=== PATIENT | female | born 1985 | race Asian ===

== ENCOUNTER 2017-03-02 00:44 | Inpatient (IN) | payer SELFPAY ==
[~2017-03-02] VITALS: Ht 167.6 cm; Wt 59.0 kg
[2017-03-02] VITALS (15 sets, daily range): BP systolic 100–114; BP diastolic 56–76
[~2017-03-02 00:44] MED LIST: NKM
[2017-03-02 01:17] LABS: MEAN CORPUSCULAR HEMOGLOBIN 27.6 PG (27.0-31.0); MEAN CORPUSCULAR HGB CONC 32.7 G/DL (32.0-36.0); MEAN CORPUSCULAR VOLUME 84 FL (80-99); MEAN PLATELET VOLUME 9.1 FL (6.5-10.1); PLATELET COUNT 236 K/UL (150-450); RED BLOOD COUNT 4.36 M/UL (4.20-5.40); RED CELL DISTRIBUTION WIDTH 14.3 % (11.6-14.8)
[2017-03-02 01:34] LABS: ALANINE AMINOTRANSFERASE 30 U/L (3-33); ALBUMIN/GLOBULIN RATIO 1.5 (1.0-2.7); ANION GAP 13 (5-15); ASPARTATE AMINO TRANSFERASE 19 U/L (5-40); CALCIUM 9.1 mg/dL (8.6-10.2); CARBON DIOXIDE 24 mEQ/L (20-30); CHLORIDE 96 mEQ/L (98-107); CREATININE 0.7 mg/dL (0.5-0.9); GLOMERULAR FILTRATION RATE > 60 mL/min (>60); HEMOLYSIS 3; LIPASE 27 U/L (< 60); POTASSIUM 3.2 mEQ/L (3.4-4.9); SODIUM 133 mEQ/L (135-145); TOTAL PROTEIN 6.7 g/dL (6.6-8.7)
--- NOTE | 2017-03-02 02:08 | Emergency Room Report ---
History of Present Illness General Chief Complaint: Syncope Source: Patient (Carlos A Davis M.D.) Present Illness HPI Patient presents after syncopal episode. She's allegedly 6 weeks . She 's complaining about right lower quadrant pain. She was seen 2 days ago at [place]. They didn't want an ultrasound and stated he couldn't be certain what was going on. They told her blood type was O+. She was seen at a private clinic and had an untrasound with IUP. The patient denies any nausea, vomiting, chest pain, shortness of breath dysuria. The patient is fairly severe in the right lower quadrant. It's constant. Addition to that she's also had generalized abdominal pain it causes her to have shortness of breath. It's also her right upper quadrant. The patient's been bleeding for 3 days. It started off as spotting. Yesterday she passed clots. She states she used 3 pads. She states that the Quant at [place] was 4000. She is status post ectopic on the left-hand side. Tube still present but is not certain that it would be functional. (Carlos A Davis M.D.) Allergies: Coded Allergies: No Known Allergies (Unverified , 03/02/17) Patient History Past Medical History: see triage record Past Surgical History: other - ectopic L Social History Narrative From [facility] - [facility] - Now: Yes : 2 Para: 0 Reviewed Nursing Documentation: PMH: Agreed, PSxH: Agreed (Carlos A Davis M.D.) Nursing Documentation-PM Past Medical History: No Stated History (Carlos A Davis M.D.) Review of Systems All Other Systems: negative except mentioned in HPI (Carlos A Davis M.D.) Physical Exam Vital Signs Date Time Temp Pulse Resp B/P Pulse Ox O2 Delivery O2 Flow Rate FiO2 03/02/17 00:33 73 17 107/75 100 Room Air 03/02/17 00:44 98.2 Sp02 EP Interpretation: reviewed, normal General Appearance: well appearing, no apparent distress, GCS 15 Head: normocephalic Eyes: bilateral eye normal inspection ENT: moist mucus membranes Neck: supple Respiratory: lungs clear, normal breath sounds Cardiovascular #1: regular rate, rhythm Cardiovascular #2: 2+ radial (R) Gastrointestinal: normal inspection, normal bowel sounds, no mass, non- distended, no rebound, tenderness - RLQ Musculoskeletal: back normal, gait/station normal, normal range of motion Neurologic: alert, oriented x3, grossly normal Psychiatric: mood/affect normal Skin: normal inspection, warm/dry (Carlos A Davis M.D.) Procedures Critical Care Time Critical Care Time Total Critical Care Time: 45 min bedside evaluation and treatment excludes procedures. Reason for critical care: evaluation of intraperitoneal hemorrhage and arranging emergent surgery with repeated evaluations Possible complications: hypotension, hypertension, PA, shock, arrhythmias, metabolic acidosis, end organ damage, respiratory failure. Interventions: Fluid resuscitation, emergent Cable Television Technician consultations, repeated evaluations, review of outside records, preparation for surgery and discussion for availability for blood transfusions Course: Patient post syncope with RLQ pain. . Emergent evaluation for ectopic. Discussion with OB and consideration for methotrexate. Further history and repeated exam. Repeat discussion with Ob. CT abdomen ordered. Blood in abdomen. Arrange for emergent surgery. Though acute blood loss, not hemorrhagic shock. Holding off on blood (though discussed with patient). Consultations: nursing staff, EMS, family, blood bank, Ob Performed by: Dr. Davis Tolerated well condition = critical (Carlos A Davis M.D.) Medical Decision Making Diagnostic Impression: Primary Impression: Syncope Qualified Codes: R55 - Syncope and collapse Additional Impressions: Rule out ectopic Right lower quadrant pain Leukocytosis Qualified Codes: D72.829 - Elevated white blood cell count, unspecified ER Course Patient is 6 weeks presents with syncope and right lower quadrant pain. Differential includes ectopic, ovarian torsion, appendicitis, vasovagal, threatened miscarriage amongst others. Emergent evaluation is undertaken with labs, EKG, ultrasound. She refused IV hydration and Tylenol. White count is elevated at 18,000. Her quant HCG 2000. Patient with R mass on ultrasound. Now with some diffuse tenderness. Will treat with analgesia. Needs observation and Ob consultation. Dr. Bryson wants us to give methotrexate. When talking to patient about this, she states that on 02/25 had ultrasound with IUP. [facility] thought she had miscarriage. She has a picture of IUP. Based on this, I cancelled methotrexate and have ordered CT of abdomen and pelvis. Call from radiologist @ 6:45 - complex mass R adnexa with "a lot" of blood in abdomen. Suggests actively bleeding ectopic. Calling Dr. Bryson. Repeating H/H. H/H dropped [address] Bryson and setting up to crossmatch blood. Arranging for emergent surgery. VS stable. Laboratory Tests Test 03/02/17 00:59 White Blood Count 18.0 K/UL (4.8-10.8) H Red Blood Count 4.36 M/UL (4.20-5.40) Hemoglobin 12.1 G/DL (12.0-16.0) Hematocrit 36.9 % (37.0-47.0) L Mean Corpuscular Volume 84 FL (80-99) Mean Corpuscular Hemoglobin 27.6 PG (27.0-31.0) Mean Corpuscular Hemoglobin Concent 32.7 G/DL (32.0-36.0) Red Cell Distribution Width 14.3 % (11.6-14.8) Platelet Count 236 K/UL (150-450) Mean Platelet Volume 9.1 FL (6.5-10.1) Neutrophils (%) (Auto) % (45.0-75.0) Lymphocytes (%) (Auto) % (20.0-45.0) Monocytes (%) (Auto) % (1.0-10.0) Eosinophils (%) (Auto) % (0.0-3.0) Basophils (%) (Auto) % (0.0-2.0) Prothrombin Time 10.0 SEC (9.30-11.50) Prothrombin Time INR 1.0 (0.9-1.1) PTT 21 SEC (23-33) L Sodium Level 133 mEQ/L (135-145) L Potassium Level 3.2 mEQ/L (3.4-4.9) L Chloride Level 96 mEQ/L (98-107) L Carbon Dioxide Level 24 mEQ/L (20-30) Anion Gap 13 (5-15) Blood Urea Nitrogen 7 mg/dL (7-23) Creatinine 0.7 mg/dL (0.5-0.9) Estimate Glomerular Filtration Rate > 60 mL/min (>60) Glucose Level 112 mg/dL (74-106) H Calcium Level 9.1 mg/dL (8.6-10.2) Total Bilirubin 0.7 mg/dL (0.0-1.2) Aspartate Amino Transferase (AST) 19 U/L (5-40) Alanine Aminotransferase (ALT) 30 U/L (3-33) Alkaline Phosphatase 31 U/L (35-104) L Total Protein 6.7 g/dL (6.6-8.7) Albumin 4.1 g/dL (3.5-5.2) Globulin 2.6 g/dL Albumin/Globulin Ratio 1.5 (1.0-2.7) Lipase 27 U/L (< 60) Human Chorionic Gonadotropin, Quant 2015 mIU/mL (Carlos A Davis M.D.) ER Course The patient was discussed with Dr. Bryson. Patient said the lower H&H was noted. The patient was crossmatched for 2 units of blood. After discussion Dr. Bryson , nursing correctional food service supervisor was contacted for OR team for exploratory surgery. I EKG interpreted by me showed a normal sinus rhythm rate of 75 with an incomplete right bundle branch block the qt was normal (Ace Biggs) EKG Diagnostic Results Rate: normal Rhythm: NSR ST Segments: no acute changes (Carlos A Davis M.D.) Rate: normal - 75 Rhythm: NSR ST Segments: no acute changes (Ace Biggs) Rhythm Strip Diag. Results EP Interpretation: yes Rhythm: NSR, no PVC's, no ectopy (Carlos A Davis M.D.) EP Interpretation: yes Rhythm: NSR, no PVC's, no ectopy (Ace Biggs) CT/MRI/US Diagnostic Results CT/MRI/US Diagnostic Results #1: Imaging Test Ordered: pelvic u/s and abd u/s Impression R complex mass, uterus empty CT/MRI/US Diagnostic Results #2: Imaging Test Ordered: ct abd pelvis Impression complex mass R adnexa with intraperitoneal blood (Carlos A Davis M.D.) Status: improved (Carlos A Davis M.D.) Status: improved (Ace Biggs) Disposition: ADMITTED INPATIENT Condition: Critical Referrals: NOT CHOSEN IPA/,REFERRING (PCP) Carlos A Davis M.D. Mar 02, 2017 02:08 Ace Biggs Mar 02, 2017 07:48
[2017-03-02] MEDS ORDERED: Metoclopramide 10mg/2ml Inj IVP ONE (03:15)
[2017-03-02] MEDS ORDERED: fentaNYL 100 mcg/2 mL IV ONE (03:15)
[2017-03-02] MEDS ORDERED: DiphenhydrAMINE 50mg/ml Inj IVP ONE (03:15)
[2017-03-02] MEDS ORDERED: Methotrexate Sodium 50mg/2ml vial IM ONE (03:45)
[2017-03-02 07:16] LABS: BASOPHILS % (AUTO) 0.7 % (0.0-2.0); EOSINOPHILS % (AUTO) 0.1 % (0.0-3.0); MEAN CORPUSCULAR HEMOGLOBIN 27.8 PG (27.0-31.0); MEAN CORPUSCULAR HGB CONC 32.7 G/DL (32.0-36.0); MEAN CORPUSCULAR VOLUME 85 FL (80-99); MEAN PLATELET VOLUME 8.2 FL (6.5-10.1); NEUTROPHILS % (AUTO) 74.3 % (45.0-75.0); PLATELET COUNT 160 K/UL (150-450); RED BLOOD COUNT 3.29 M/UL (4.20-5.40); RED CELL DISTRIBUTION WIDTH 14.1 % (11.6-14.8); WHITE BLOOD COUNT 10.9 K/UL (4.8-10.8)
[2017-03-02] MEDS ORDERED: ceFAZolin sod 1 GM in NS 55 ML IVPB ONE (08:15)
[2017-03-02] MEDS ORDERED: Bupivacaine w/Epi 0.5% 30ml Vial INJ ONE (08:41)
[2017-03-02] MEDS ORDERED: Dexamethasone 4mg/ml vial ONE (08:47)
[2017-03-02] MEDS ORDERED: Sterile Water Irrig 1000ml IRRIG ONE (08:47)
[2017-03-02] MEDS ORDERED: Succinylcholine 20mg/ml 10ml vial ONE (08:47)
[2017-03-02] MEDS ORDERED: NS 275ml ONE (08:47)
[2017-03-02] MEDS ORDERED: Ketorolac 30mg Inj ONE (08:47)
[2017-03-02] MEDS ORDERED: Midazolam 2mg/2ml Inj ONE (08:47)
[2017-03-02] MEDS ORDERED: LR 1000ml ONE (08:47)
[2017-03-02] MEDS ORDERED: NS Irrig 1000ml ONE (08:47)
[2017-03-02] MEDS ORDERED: Propofol 10mg/ml 20ml IV ONE (08:47)
[2017-03-02] MEDS ORDERED: fentaNYL 250mcg/5ml ONE (08:47)
[2017-03-02] MEDS ORDERED: Metoclopramide 10mg/2ml Inj ONE (08:47)
[2017-03-02] MEDS ORDERED: Lidocaine 1% MPF 10mg/ml 5ml ONE (08:47)
[2017-03-02] MEDS ORDERED: Zemuron 50mg/5ml Inj IV ONE (08:47)
--- NOTE | 2017-03-02 08:49 | Anethesia Preoperative Eval ---
Anesthesia Pre-op PMH/ROS General Date of Evaluation: Mar 02, 2017 Anesthesiologist: Eloy ASA Score: ASA 1 - E Mallampati Score Class I : Soft palate, uvula, fauces, pillars visible Class II: Soft palate, uvula, fauces visible Class III: Soft palate, base of uvula visible Class IV: Only hard plate visible Mallampati Classification: Class II Surgeon: Adelaide Diagnosis: Ruptured ectopic Surgical Procedure: Laparoscopic excision ectopic Anesthesia History: none Family History: no anesthesia problems Allergies: Coded Allergies: No Known Allergies (Unverified , 03/02/17) Medications: see eMAR Past Medical History Cardiovascular: Denies: CAD, HTN, MD, arrhythmia, other, valve dz Pulmonary: Denies: COPD, DOUGLAS, asthma, other Gastrointestinal/Genitourinary: Denies: CRI, ESRD, GERD, other Neurologic/Psychiatric: Denies: CVA, TIA, dementia, depression/anxiety, other Endocrine: Denies: DM, hypothyroidism, other, steroids HEENT: Denies: [place] (L), [place] (R), cataract (L), cataract (R), glaucoma, other Hematology/Immune: Denies: DVT, anemia, bleeding disorder, other Musculoskeletal/Integumentary: Denies: DDD, DJD, OA, RA, edema, other PSxH Narrative: Denies Anesthesia Pre-op Phys. Exam Physician Exam Last Vital Signs Date Time Temp Pulse Resp B/P Pulse Ox O2 Delivery O2 Flow Rate FiO2 03/02/17 06:15 98.0 67 18 100/62 100 Room Air Constitutional: NAD Cardiovascular: RRR Respiratory: CTA Airway Exam Mallampati Score: Class II MO: limited ROM: limited Teeth: intact Anesthesia Pre-op A/P Labs Hematology Test 03/02/17 00:59 03/02/17 07:00 White Blood Count 18.0 K/UL (4.8-10.8) H 10.9 K/UL (4.8-10.8) H Red Blood Count 4.36 M/UL (4.20-5.40) 3.29 M/UL (4.20-5.40) L Hemoglobin 12.1 G/DL (12.0-16.0) 9.2 G/DL (12.0-16.0) L Hematocrit 36.9 % (37.0-47.0) L 28.1 % (37.0-47.0) L Mean Corpuscular Volume 84 FL (80-99) 85 FL (80-99) Mean Corpuscular Hemoglobin 27.6 PG (27.0-31.0) 27.8 PG (27.0-31.0) Mean Corpuscular Hemoglobin Concent 32.7 G/DL (32.0-36.0) 32.7 G/DL (32.0-36.0) Red Cell Distribution Width 14.3 % (11.6-14.8) 14.1 % (11.6-14.8) Platelet Count 236 K/UL (150-450) 160 K/UL (150-450) Mean Platelet Volume 9.1 FL (6.5-10.1) 8.2 FL (6.5-10.1) Neutrophils (%) (Auto) % (45.0-75.0) 74.3 % (45.0-75.0) Lymphocytes (%) (Auto) % (20.0-45.0) 19.0 % (20.0-45.0) L Monocytes (%) (Auto) % (1.0-10.0) 6.0 % (1.0-10.0) Eosinophils (%) (Auto) % (0.0-3.0) 0.1 % (0.0-3.0) Basophils (%) (Auto) % (0.0-2.0) 0.7 % (0.0-2.0) Coagulation Test 03/02/17 00:59 Prothrombin Time 10.0 SEC (9.30-11.50) Prothromb Time International Ratio 1.0 (0.9-1.1) Activated Partial Thromboplast Time 21 SEC (23-33) L Chemistry Test 03/02/17 00:59 Sodium Level 133 mEQ/L (135-145) L Potassium Level 3.2 mEQ/L (3.4-4.9) L Chloride Level 96 mEQ/L (98-107) L Carbon Dioxide Level 24 mEQ/L (20-30) Anion Gap 13 (5-15) Blood Urea Nitrogen 7 mg/dL (7-23) Creatinine 0.7 mg/dL (0.5-0.9) Estimat Glomerular Filtration Rate > 60 mL/min (>60) Glucose Level 112 mg/dL (74-106) H Calcium Level 9.1 mg/dL (8.6-10.2) Total Bilirubin 0.7 mg/dL (0.0-1.2) Aspartate Amino Transf (AST/SGOT) 19 U/L (5-40) Alanine Aminotransferase (ALT/SGPT) 30 U/L (3-33) Alkaline Phosphatase 31 U/L (35-104) L Total Protein 6.7 g/dL (6.6-8.7) Albumin 4.1 g/dL (3.5-5.2) Globulin 2.6 g/dL Albumin/Globulin Ratio 1.5 (1.0-2.7) Lipase 27 U/L (< 60) Human Chorionic Gonadotropin, Quant 2015 mIU/mL Risk Assessment & Plan Assessment: ASA IE Plan: GA Status Change Before Surgery: No Pre-Antibiotics Drug: Ancef 1g Given Within 1 Hr of Incision: Yes - 08 Time Given: 08:30 ABILIO MATTHEWS M.D. Mar 02, 2017 08:49
[2017-03-02 08:59] LABS: APPEARANCE,URINE CLEAR; KETONES,URINE 1+ (NEGATIVE); LEUKOCYTE ESTERASE ,URINE NEGATIVE (NEGATIVE); NITRITE,URINE NEGATIVE (NEGATIVE); PH,URINE 6.5 (4.5-8.0); PROTEIN,URINE NEGATIVE (NEGATIVE); UROBILINOGEN,URINE NORMAL MG/DL (0.0-1.0)
[2017-03-02] MEDS ORDERED: LR 1000ml 1,000 ML IVLG SCH (09:03)
--- NOTE | 2017-03-02 09:05 | 48 Hour Post Anesthesia Eval ---
Post Anesthesia Evaluation Procedure: Laparoscopic excision ectopic Date of Evaluation: Mar 02, 2017 Time of Evaluation: 13:30 Blood Pressure Systolic: 108 0: 64 Pulse Rate: 78 Respiratory Rate: 20 Temperature (Fahrenheit): 97 O2 Sat by Pulse Oximetry: 100 Airway: patent Nausea: No Vomiting: No Pain Intensity: 0 Hydration Status: adequate Cardiopulmonary Status: at [place] Mental Status/LOC: patient returned to baseline Post-Anesthesia Complications: 0 Follow-up care needed: N/A - further care as per primary team ABILIO MATTHEWS M.D. Mar 02, 2017 09:05
--- NOTE | 2017-03-02 09:05 | Immediate Post-Op Evaluation ---
Immediate Post-Op Evalulation Immediate Post-Op Evalulation Procedure: Laparoscopic excision ectopic Date of Evaluation: Mar 02, 2017 Time of Evaluation: 11:22 IV Fluids: 1.6L Blood Products: 0 Estimated Blood Loss: 750 Urinary Output: 200 Blood Pressure Systolic: 108 Blood Pressure Diastolic: 63 Pulse Rate: 94 Respiratory Rate: 16 O2 Sat by Pulse Oximetry: 100 Temperature (Fahrenheit): 98.4 Pain Score (1-10): 0 Nausea: No Vomiting: No Complications 0 Patient Status: awake, reacts, patent, none Hydration Status: adequate Drug: Ancef 1g Given Within 1 Hr of Incision: Yes Time Given: 08:30 ABILIO MATTHEWS M.D. Mar 02, 2017 09:05
[2017-03-02 09:14] LABS: RBC,URINE 0-2 /HPF (0 - 2); SQUAMOUS EPITHELIAL CELL,UR OCCASIONAL /LPF (NONE/OCC); WBC,URINE 0-2 /HPF (0 - 2)
[2017-03-02] MEDS ORDERED: fentaNYL 100 mcg/2 mL IV PRN (09:15)
[2017-03-02] MEDS ORDERED: Midazolam 2mg/2ml Inj IVP PRN (09:15)
[2017-03-02] MEDS ORDERED: DiphenhydrAMINE 50mg/ml Inj IVP PRN (09:15)
[2017-03-02] MEDS ORDERED: Metoclopramide 10mg/2ml Inj IVP PRN (09:15)
[2017-03-02] MEDS ORDERED: LORazepam Inj 2mg/ml 1ml IV PRN (09:15)
[2017-03-02] MEDS ORDERED: Hydromorphone 0.5mg/0.5ml inj IVP PRN (09:15)
[2017-03-02] MEDS ORDERED: Ketorolac 30mg Inj IV PRN (09:15)
--- NOTE | 2017-03-02 10:13 | Diagnostic Imaging Report ---
Indication: Abdominal pain Technique: CT of the abdomen and pelvis utilizing automated exposure control with intravenous contrast. Venous scanning performed. CT dose: Total DLP 729 mGycm; CTDI vol 14.1 mGy Comparison: Pelvic ultrasound from earlier the same day Findings: There is mild atelectasis in the lung bases. There is mild free fluid in the upper abdomen and the pelvis. There is a 5.6 x 6.1 cm heterogeneous hyperdense right anterior adnexal mass. There is thickening and heterogeneous endometrial fluid. The bladder is grossly unremarkable. The liver, adrenal glands, kidneys, spleen, pancreas and gallbladder are unremarkable. The small bowel loops are normal in caliber. The appendix is normal. There is no free intraperitoneal air. Impression: Reportedly female with right adnexal 6.1 x 5.6 cm hyperdense mass with mild fluid in the pelvis and upper abdomen adjacent to the liver and spleen. Possibility of a ruptured ectopic should be considered as an intrauterine was not identified on the pelvic ultrasound. Hyperdense mass in the right lower quadrant suggestive of hematoma and hemoperitoneum. Gynecologic evaluation recommended. The above report is essentially concordant with preliminary reading by [facility]. Findings also discussed with Dr. Biggs at [address] The CT scanner at [facility] is accredited by the [employer] and the scans are performed using protocols designed to limit radiation exposure to as low as reasonably achievable to attain images of sufficient resolution adequate for diagnostic evaluation.
--- NOTE | 2017-03-02 10:14 | Diagnostic Imaging Report ---
Indication: Chest pain Technique: XRAY CHEST 1 V Comparison: None Findings: The cardiomediastinal silhouette is within normal limits. There is no focal consolidation, pneumothorax or pleural effusion. Osseous structures demonstrate no acute abnormality. Impression: No acute cardiopulmonary disease.
[2017-03-02] MEDS ORDERED: Silver Nitrate Stick TOPIC ONE (11:05)
--- NOTE | 2017-03-02 11:19 | Pre-Procedure Note/Attestation ---
Pre-Procedure Note/Attestation Complete Prior to Procedure Planned Procedure: right Procedure Narrative: Video pelviscopy, evacuation of hemoperitoneum, extraction of tubal contents, D& C Indications for Procedure Pre-Operative Diagnosis: Possible ectopic , possible missed Attestation I attest that I discussed the nature of the procedure; its benefits; risks and complications; and alternatives (and the risks and benefits of such alternatives ), prior to the procedure, with the patient (or the patient's legal territory account representative). I attest that, if there was a reasonable possibility of needing a blood transfusion, the patient (or the patient's legal territory account representative) was given the [place] [employer] [facility] standardized written summary, pursuant to the Socrates Terri Blood Safety Act ([place] Health and Safety Code # 1645, as amended). I attest that I re-evaluated the patient just prior to the surgery and that there has been no change in the patient's H&P, except as documented below:NONE HAROON MORRISON Mar 02, 2017 11:19
--- NOTE | 2017-03-02 11:23 | Brief Operative Note ---
Immediate Post Operative Note Operative Note Pre-op Diagnosis: Possible ectopic , possible missed Procedure: D&C, Pelviscopy, Removal Right tubal contents, evacuation of hemoperitoneum Post-op Diagnosis: same as pre-op Surgeon: Haroon Morrison MD Anesthesiologist: Meka Morrell MD Anesthesia: general Specimen: yes - Uterine contents, Right tubal contents Complications: none Condition: stable Estimated Blood Loss: volume - 1000 Drains: none Implant(s) used?: No HAROON MORRISON Mar 02, 2017 11:23
[2017-03-02] MEDS ORDERED: Norco 5mg/325mg tab ORAL PRN (11:30)
[2017-03-02] MEDS ORDERED: Tylenol #3 tab (300mg/30mg) ORAL PRN (11:30)
[2017-03-02] MEDS ORDERED: HYDROmorphone 1mg/ml Carpuject SUBQ PRN (11:30)
[2017-03-02] MEDS ORDERED: Meperidine 25mg/0.5ml Inj (FOR RIGORS ONLY) IV PRN (11:45)
[2017-03-02] MEDS ORDERED: D5 1/2NS 1,000 ML IV SCH (14:00)
--- NOTE | 2017-03-02 18:00 | Operative Note - Dictated ---
DATE OF OPERATION: 03/02/2017 PROCEDURES PERFORMED: 1. Video pelviscopy with evacuation of hemoperitoneum. 2. Video pelviscopy with removal of right tubal contents. 3. Dilatation and curettage. SURGEON: Alex Bryson M.D. ANESTHESIOLOGIST: Dr. Meka Morrell. ANESTHESIA TYPE: General endotracheal. PREOPERATIVE DIAGNOSIS: Possible intrauterine . PROCEDURE IN DETAIL: After all the appropriate consents were signed, the patient was brought to the operating room and placed on table in supine position. General endotracheal anesthesia was induced without complication. The patient was then placed in the dorsal lithotomy position. Perineum, vagina, and abdomen were prepped in usual fashion for the procedure. Due to the previous possible ultrasound, which showed intrauterine , but no currently intrauterine visualized, it was still decided to proceed with uterine curettage and vacuum evacuation. This procedure was performed and significant amount of contents were visualized during both the sharp and vacuum suction. Once this was completed, an uterine manipulator was placed and the procedure continued at its abdominal portion. An umbilical incision was made, Veress needle was advanced, and the abdomen was insufflated with 15 mmHg. The pelvis was now entered with a 10 mm trocar in the umbilicus and two additional trocars in the midline and lower left areas. The procedure then continued with visualization of the pelvis. There was a significant amount of blood in the pelvis, which was evacuated and the tube was found in the right anterior cul-de-sac near the bladder. The tube contained significant amount of clots around it with portion of the clots coming from inside of the dilated fimbrial portion. At this time, evacuation was undertaken and all of the clots and blood were suctioned after thorough irrigation and suction. The fimbrial end was now visualized and was slightly bleeding. A gentle cauterization was applied to the uterine fimbria on the right. At this time, the rest of the pelvis was visualized. The uterus was elevated, however the uterus was difficult to elevate due to the posterior uterine adhesions to the posterior vagina and the cone. The left side was also covered with a loop of colon, which was suspended from the left pelvic sidewall with adhesions. The tube on the left was completely matted with adhesions and slightly dilated throughout the length of the tube. The photographs were taken at this time and the upper abdomen was also evaluated. There was a significant amount of blood. There were adhesions from the cecum to the right pelvic sidewall. The appendix was visualized and was found to be within normal limits. At this time, the procedure continued with grasping of the right tubal fimbria and completely evaluating the fimbria for any bleeding. Some additional hemostasis was required using coagulation. At this time, the abdomen was thoroughly irrigated and debris and blood were suctioned. Over 3 liters of irrigant was used. The procedure then continued with once again evaluating the pelvis. All the operative sites were fully hemostatic and the trocars were removed one after another with direct visualization of the laparoscope. The laparoscope was removed last. All the operative sites were fully hemostatic. The punctures were closed using #0 Vicryl suture at the fascia layer and Monocryl suture at the skin layer. The patient incisions were covered with Steri-Strips and benzoin. The patient was now placed in the supine position, uterine manipulator was removed, and the patient was awakened from general anesthesia. She was transferred to the recovery room in excellent condition. Alex Bryson M.D. DR: ROSALINDA JOB#: [id number] CC: ETHAN
[2017-03-04 06:54] VITALS: BP 108/64
--- NOTE | 2017-03-05 08:48 | Discharge Summary ---
Discharge Summary Hospital Course Date of Admission Mar 02, 2017 at 12:55 Date of Discharge Mar 02, 2017 at 16:33 Admitting Diagnosis ECTOPIC Reason for Hospitalization: ectopic RADHA Aguilar is a 31 year old female who was presented after syncopal episode. She's allegedly 6 weeks . She was complaining about right lower quadrant pain. She was seen 2 days ago at [facility], but no US was done at that time She was told her blood type was O+. She was seen at a private clinic and had an ultrasound which revealed alleged IUP. The patient denied any nausea, vomiting, chest pain, dysuria. The patient had severe and constant pain in the right lower quadrant. Abdominal pain was causing shortness of breath. The patient's had been bleeding for 3 days, started as spotting, but the day priro to presentation to ED passed clots. She stated she used 3 pads. She stated that the Quant at [place] was 4000. Patient status post ectopic on the left side. Tube still present but not certain if would be functional. CT abdomen/pelvis done in ER and revealed ruptured ectopic MYSQL DATABASE ADMINISTRATOR was consulted immediately patient was admitted for surgical intervention Procedures s/p 03/02 dr Jarrod Bryson 1. Video pelviscopy with evacuation of hemoperitoneum. 2. Video pelviscopy with removal of right tubal contents. 3. Dilatation and curettage. CT abdomen ind pelvis done in ER prior to surgery Right adnexal 6.1 x 5.6 cm hyperdense mass with mild fluid in the pelvis and upper abdomen adjacent to the liver and spleen. Possibility of a ruptured ectopic should be considered as an intrauterine was not identified on the pelvic ultrasound. Hyperdense mass in the right lower quadrant suggestive of hematoma and hemoperitoneum. Hospital Course patient undergone emergent surgery - D&C, Pelviscopy, Removal Right tubal contents, evacuation of hemoperitoneum course of recovery uneventful pain controlled ambulatory voided tolerated diet tray HH down after surgery check HH as outpatient with PMD , likely anemia due to acute blood loss stable for dc home fup with PMD and GUN as outpatient due to rapid and unexpected improvement in patient condition, the patient was discharged in one day FINAL DIAGNOSIS Possible ectopic , possible missed s/p 03/02 -D&C, Pelviscopy, Removal Right tubal contents, evacuation of hemoperitoneum anemia due to acute blood loss Discharge Condition Upon Discharge: stable Discharge Disposition Patient was discharged to Home (01) Discharge Diagnoses: Discharge Instructions Discharge Instructions Special Instructions I have been assigned to complete a D/C Summary on this account. I was not involved in the patient management Peace Caldwell NP ([place]) Mar 05, 2017 08:48
== END 2017-03-02 16:33 | disposition home or self-care (01) | DRG 777 ==
LOC: EDBD 00:44 → EMR 01:53 → UNDOADMIN 03:30 → 2E 03:30 → EDBD 03:30 → EDBEDREQ 03:56 → SUR 08:02 → 3E 12:55
PROC: 10D27ZZ Extraction of Products of Conception, Ectopic, Via Natural or Artificial Opening (ICD-10-PCS; principal; 2017-03-02 09:00)
DX: O00.90 Unspecified ectopic pregnancy without intrauterine pregnancy (principal); K66.1 Hemoperitoneum; D62 Acute posthemorrhagic anemia
CPT/HCPCS: 36415; 71010; 74177; 76700; 76830; 76856; 80053; 81003; 83690; 84702; 85025; 85610; 85730; 86850; 86900; 86901; 86920; 93005; G0378; J2180; J2250; J2405; J2765